=== PATIENT | male | born 1965 ===

== ENCOUNTER 2017-01-17 13:22 | Outpatient (CLI) | payer MEDICAID ==
[2017-01-17] MEDS ORDERED: ALBUTEROL NEB 2.5 MG/3 ML INH ONE (13:29)
== END 2017-01-17 13:23 | disposition home or self-care (01) ==
DX: J45.909 Unspecified asthma, uncomplicated (principal)
CPT/HCPCS: 94060; J7613

== ENCOUNTER 2023-04-30 09:37 | Outpatient (CLI) | payer MEDICAID, OTHER ==
--- NOTE | 2023-04-30 13:48 | XRAY Report ---
PROCEDURE: Cervical Spine 2 View INDICATIONS: NECK PAIN TECHNIQUE: 3 view(s) of the cervical spine were acquired. COMPARISON: None. FINDINGS: Bones: No fractures or dislocations to the C7-T1 level. There is reversal of cervical curvature wit h apex at C5. Trace retrolisthesis of C5 on C6. Multilevel mild to moderate disc space narrowing most severe from C4-5 through C6-7. Osteophytes are present. Multilevel uncovertebral arthropathy is present. The lateral masses of C1 ap pear intact on the odontoid view. No suspicious bony lesions. Soft tissues: No prevertebral soft tissue swelling. IMPRESSION: Multilevel degenerative changes most severe from C4-5 through C6-7. Reviewed by: Merna Davis MD on 04/30/2023 1:47 PM PDT Approved by: Merna Davis MD on 04/30/2023 1:47 PM PDT Station ID: [id number]
== END 2023-04-30 23:59 | disposition home or self-care (01) ==
LOC: DI.S 09:37
PROVIDERS: ATTEND Physician Assistant Medical
DX: M47.812 Spondylosis without myelopathy or radiculopathy, cervical region (principal)